=== PATIENT | female | born 1950 | race Caucasian/White ===

== ENCOUNTER → 2021-09-05 | Outpatient (CLI) | payer MEDICARE ==
--- NOTE | 2021-09-06 08:52 | P.ARTDOP ---
Arterial Doppler LOWER EXTREMITY ARTERIAL DOPPLER: DATE OF SERVICE: 09/05/2021 Reason for study: Bilateral leg pain. Doppler waveforms: Atypical bilaterally throughout. Pulse volume recording: []. Pressure gradients: []. Ankle-brachial indices: []. Toe brachial indices: [] on the right, [] on the left Impression: No pressures are done. Waveforms suggest mild to moderate femoral popliteal disease. Clinical correlation recommended..
== END | disposition home or self-care (01) ==
LOC: RADUSWWP 11:56
PROVIDERS: ATTEND Family Medicine
DX: R25.2 Cramp and spasm (principal); M54.17 Radiculopathy, lumbosacral region; M79.605 Pain in left leg; M79.604 Pain in right leg
CPT/HCPCS: 93922